=== PATIENT | male | born 1960 | race Caucasian/White ===

== ENCOUNTER → 2016-05-08 | Outpatient (CLI) | payer OTHER ==
[2016-05-10 15:32] LABS: HCV Qualitative Result DETECTED (Not detected)
== END | disposition home or self-care (01) ==
LOC: LABWHC1 14:47
PROVIDERS: ATTEND Physician Assistant
DX: B18.2 Chronic viral hepatitis C (principal)
CPT/HCPCS: 36415; 87522; 87902

== ENCOUNTER → 2016-05-15 | Outpatient (CLI) | payer OTHER ==
[2016-05-20 06:31] LABS: Mis test requested (Blood) Hep C RNA Geno1 NS5a
== END | disposition home or self-care (01) ==
LOC: LABWHC1 11:35
PROVIDERS: ATTEND Physician Assistant
DX: B18.2 Chronic viral hepatitis C (principal)
CPT/HCPCS: 36415; 87902

== ENCOUNTER 2016-08-29 07:23 | Day surgery (SDC) | payer OTHER ==
[2016-08-25 15:57] VITALS: BMI 29.0
[~2016-08-29 07:23] MED LIST: LACTATED RINGERS 1,000 ML IV SCH
[2016-08-29 07:45] VITALS: RESP 18; TEMP 97.9
[2016-08-29] MEDS ORDERED: LIDOCAINE 1% 20 ML VIAL (10MG/ML) FOR IV START INTRADERMA ONE (07:55)
[2016-08-29] MEDS ORDERED: PROPOFOL 10 MG/ML 20 ML VIAL IV ONE (08:42)
[2016-08-29] MEDS ORDERED: LIDOCAINE 1% INJ 10MG/ML (20 ML MDV) ONE (08:42)
--- NOTE | 2016-08-29 09:08 | P.PCN ---
Date of Procedure: 08/29/16 Preoperative Diagnosis: Postoperative Diagnosis: Procedure(s) Performed: Procedure: Total colonoscopy. Preoperative diagnosis: Screening for neoplasia, patient has history of polyps. Postoperative diagnosis: Exam within normal limits. Preparation: HalfLytely prep. Sedation: Was provided by anesthesia. Brief clinical history: The patient is a 55-year-old male who is scheduled for this evaluation because of history of polyps. Multiple polyps were removed on his last exam was in September 2013. The patient has no abdominal complaints, bleeding or anemia. Procedure: With the patient on his left lateral decubitus position and after informed consent and adequate sedation, the perianal area was inspected and it did not show any fissures or fistulas. There were no masses felt on digital rectal examination. The Olympus CFQ 160L video colonoscope was then inserted in the rectum in the usual fashion and advanced to the cecum. The mucosa appeared healthy. No polyps or tumors were seen or any obvious diverticular disease or other pathology. I retroflexed endoscope in the rectum before the endoscope was withdrawn. The patient tolerated the procedure well. Plan: The patient was reassured. He will follow up with you as planned and I recommended repeat exam in 5 years. Implants: Indications for Procedure: Operative Findings: Description of Procedure:
[2016-08-29 09:24] VITALS: BP 166/84; PULSE 52
== END 2016-08-29 09:42 | disposition home or self-care (01) ==
LOC: ORWHC2ENDO 07:23
DX: Z12.11 Encounter for screening for malignant neoplasm of colon (principal); Z86.010 Personal history of colon polyps; F17.200 Nicotine dependence, unspecified, uncomplicated; E07.9 Disorder of thyroid, unspecified; Z79.1 Long term (current) use of non-steroidal anti-inflammatories (NSAID); Z79.891 Long term (current) use of opiate analgesic; Z79.899 Other long term (current) drug therapy
CPT/HCPCS: J2001; J2704; G0105

== ENCOUNTER → 2016-10-18 | Outpatient (CLI) | payer MEDICARE ==
[2016-10-18 13:28] LABS: Basophils # (A) 0.1 k/uL (0-0.2); Basophils % (A) 1 %; CH 28.1; CHCM 33.3; Eosinophils # (A) 0.2 k/uL (0-0.7); Eosinophils % (A) 2 %; HCT 49.1 % (39.0-53.0); HDW 2.59; HGB 16.3 gm/dL (13.0-17.5); Luc # (Auto) 0.11; Luc % (Auto) 1; Lymphocytes # (A) 2.4 k/uL (1.0-4.8); Lymphocytes % (A) 23 %; MCH 28.1 pg (25.0-35.0); MCHC 33.2 g/dL (31.0-37.0); MCV 84.7 fL (80.0-100.0); Mean Platelet Volume 6.8; Monocytes # (A) 0.6 k/uL (0-1.0); Monocytes % (A) 6 %; Neutrophils # (A) 6.7 k/uL (1.3-7.7); Neutrophils % (A) 67 %; RDW 13.2 % (11.5-15.5); WBC (Perox) 9.16
[2016-10-18 13:41] LABS: Bilirubin, Delta 0.2 mg/dL (0.0-0.2); Total Bilirubin 0.7 mg/dL (0.2-1.3); Total Protein 7.2 g/dL (6.3-8.2)
[2016-10-20 14:41] LABS: LOG HCV IU/mL 6.33 (<1.08)
== END ==
LOC: LABWHC1 13:03
DX: B18.2 Chronic viral hepatitis C (principal)
CPT/HCPCS: 36415; 80076; 85025; 87522

== ENCOUNTER → 2017-02-16 | Outpatient (CLI) | payer MEDICARE ==
[2017-02-16 13:12] LABS: Basophils # (A) 0.1 k/uL (0-0.2); Basophils % (A) 1 %; CH 27.8; CHCM 32.2; Eosinophils # (A) 0.3 k/uL (0-0.7); Eosinophils % (A) 4 %; HCT 49.1 % (39.0-53.0); HDW 2.47; HGB 15.9 gm/dL (13.0-17.5); Luc # (Auto) 0.05; Luc % (Auto) 1; Lymphocytes % (A) 22 %; MCH 28.1 pg (25.0-35.0); MCHC 32.5 g/dL (31.0-37.0); MCV 86.7 fL (80.0-100.0); Mean Platelet Volume 7.9; Monocytes # (A) 0.5 k/uL (0-1.0); Monocytes % (A) 5 %; Neutrophils % (A) 67 %; RBC 5.66 m/uL (4.30-5.90); RDW 14.7 % (11.5-15.5); WBC (Perox) 9.22
[2017-02-16 14:51] LABS: Bilirubin, Delta 0.2 mg/dL (0.0-0.2); Total Bilirubin 0.6 mg/dL (0.2-1.3); Total Protein 7.3 g/dL (6.3-8.2)
[2017-02-19 15:49] LABS: Hepatits C Virus RNA, Quant <12 IU/mL (<12); LOG HCV IU/mL <1.08 (<1.08)
== END | disposition home or self-care (01) ==
LOC: LABWHC1 12:47
PROVIDERS: ATTEND Physician Assistant
DX: B18.2 Chronic viral hepatitis C (principal)
CPT/HCPCS: 36415; 80076; 85025; 87522

== ENCOUNTER → 2017-08-14 | Outpatient (CLI) | payer MEDICARE ==
[2017-08-14 13:09] LABS: Albumin 4.5 g/dL (3.5-5.0); Bilirubin, Delta 0.2 mg/dL (0.0-0.2); Bilirubin,Unconjugated 0.5 mg/dL (0.0-1.1); Total Bilirubin 0.7 mg/dL (0.2-1.3); Total Protein 7.3 g/dL (6.3-8.2)
[2017-08-15 13:06] LABS: Hepatits C Virus RNA DETECTED (Not detected); LOG HCV IU/mL 3.83 (<1.08)
== END | disposition home or self-care (01) ==
LOC: LABWHC1 12:23
DX: B19.20 Unspecified viral hepatitis C without hepatic coma (principal)
CPT/HCPCS: 36415; 80076; 87522

== ENCOUNTER → 2017-09-03 | Outpatient (CLI) | payer MEDICARE ==
[2017-09-03 10:16] LABS: Basophils % (A) 1 %; Eosinophils # (A) 0.2 k/uL (0-0.7); Eosinophils % (A) 2 %; HCT 48.5 % (39.0-53.0); HGB 16.1 gm/dL (13.0-17.5); Lymphocytes # (A) 2.1 k/uL (1.0-4.8); Lymphocytes % (A) 22 %; MCH 28.6 pg (25.0-35.0); MCHC 33.3 g/dL (31.0-37.0); Mean Platelet Volume 6.6; Monocytes # (A) 0.6 k/uL (0-1.0); Monocytes % (A) 6 %; Neutrophils # (A) 6.5 k/uL (1.3-7.7); Neutrophils % (A) 68 %; Platelet Count 209 k/uL (150-450); RBC 5.63 m/uL (4.30-5.90); RDW 13.5 % (11.5-15.5); WBC 9.5 k/uL (3.8-10.6)
== END | disposition home or self-care (01) ==
LOC: LABWHC1 09:41
PROVIDERS: ATTEND Physician Assistant
DX: B18.2 Chronic viral hepatitis C (principal)
CPT/HCPCS: 36415; 85025

== ENCOUNTER → 2017-12-18 | Outpatient (CLI) | payer MEDICARE ==
[2017-12-18 13:14] LABS: Basophils # (A) 0.1 k/uL (0-0.2); Basophils % (A) 1 %; Eosinophils # (A) 0.2 k/uL (0-0.7); Eosinophils % (A) 2 %; HCT 49.1 % (39.0-53.0); Lymphocytes # (A) 2.6 k/uL (1.0-4.8); Lymphocytes % (A) 22 %; MCH 27.5 pg (25.0-35.0); MCHC 32.5 g/dL (31.0-37.0); MCV 84.7 fL (80.0-100.0); Mean Platelet Volume 6.9; Monocytes # (A) 0.6 k/uL (0-1.0); Monocytes % (A) 5 %; Neutrophils # (A) 8.1 k/uL (1.3-7.7); Neutrophils % (A) 70 %; Platelet Count 252 k/uL (150-450); WBC 11.6 k/uL (3.8-10.6)
[2017-12-18 13:52] LABS: Albumin 4.1 g/dL (3.5-5.0); Bilirubin, Delta 0.2 mg/dL (0.0-0.2); Bilirubin,Unconjugated 0.4 mg/dL (0.0-1.1); Total Bilirubin 0.6 mg/dL (0.2-1.3); Total Protein 7.1 g/dL (6.3-8.2)
== END | disposition home or self-care (01) ==
LOC: LABWHC1 11:59
PROVIDERS: ATTEND Physician Assistant
DX: B18.2 Chronic viral hepatitis C (principal)
CPT/HCPCS: 36415; 80076; 82105; 85025

== ENCOUNTER → 2018-01-09 | Outpatient (CLI) | payer MEDICARE ==
[2018-01-10 14:58] LABS: Hepatits C Virus RNA Not detected (Not detected); Hepatits C Virus RNA, Quant <12 IU/mL (<12); LOG HCV IU/mL <1.08 (<1.08)
== END | disposition home or self-care (01) ==
LOC: LABWHC1 09:40
DX: B18.2 Chronic viral hepatitis C (principal)
CPT/HCPCS: 36415; 87522

== ENCOUNTER → 2018-06-28 | Outpatient (CLI) | payer MEDICARE ==
[2018-07-01 15:43] LABS: Hepatits C Virus RNA Not detected (Not detected); Hepatits C Virus RNA, Quant <12 IU/mL (<12); LOG HCV IU/mL <1.08 (<1.08)
== END | disposition home or self-care (01) ==
LOC: LABWHC1 10:45
DX: B18.2 Chronic viral hepatitis C (principal)
CPT/HCPCS: 36415; 87522

== ENCOUNTER 2018-10-08 10:58 | Inpatient (IN) | payer MEDICARE ==
[2018-10-08] MEDS ORDERED: SODIUM CHLORIDE 0.9% 1,000 ML IV STA (11:17)
[2018-10-08 11:33] LABS: Glucose,Whole Blood 107 mg/dL (75-99)
--- NOTE | 2018-10-08 11:41 | ED ---
Neuro HPI - General Chief Complaint: Weakness Stated Complaint: POSS CVA Source: patient, family Mode of arrival: wheelchair Limitations: no limitations - History of Present Illness Is the patient presenting with stroke symptoms?: Yes Initial Comments: This 57-year-old white male presents with with the complaint of some right- sided weakness. 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 Ingram. He had this surgery due to severe back arthritis which was causing some right arm weakness. The head continued right arm weakness after the surgery. He is placed on a 12 day course of steroids from approximately September 10 to September 22. He relates that his weakness did improve to some degree but then worsened after he stopped the steroids. At this point, he cannot move any portion of his right upper extremity. The relates that it also is been affecting his right lower extremity. He seems weak on his right leg but is still able to ambulate but seems to have foot drop on the right side. She also relates that she is having problems with his speech. He apparently has symptoms of expressive aphasia per his . They were sent in today by their doctor to rule out any possibility of stroke that could be complicating his postoperative course. He denies any problems with sensation. There is not been any recent fevers or chills or signs of infection. He denies any other previous medical history outside of neck arthritis. There is been no history of previous stroke or TIA. It sounds as though his right arm paralysis, right leg weakness, and expressive aphasia have been going on for approximately 2-1/2 weeks. - Related Data Home Medications: Home Medications Medication Instructions Recorded Confirmed Levothyroxine Sodium [Synthroid] 75 mcg PO DAILY 08/25/16 10/08/18 Allergies/Adverse Reactions: Allergies Allergy/AdvReac Type Severity Reaction Status Date / Time No Known Allergies Allergy Verified 10/08/18 11:22 Review of Systems ROS Statement: Those systems with pertinent positive or pertinent negative responses have been documented in the HPI. ROS Other: All systems not noted in ROS Statement are negative. General Exam - General Exam Comments Initial Comments: GENERAL: The patient is well nourished and well hydrated. VITAL SIGNS: Heart rate, blood pressure, respiratory rate reviewed as recorded in nurse's notes. EYES: Pupils are round and reactive. Extraocular movements are intact. No conjunctival / lid redness or swelling. ENT: No external evidence of injury, swelling, or ecchymosis. Airway is patent. Throat is clear. NECK: Nontender. No swelling or evidence of injury. No subcutaneous emphysema. Trachea is midline. No thyroid mass. HEART: Regular rate and rhythm. Good peripheral pulses. LUNGS/CHEST: Breath sounds clear and equal bilaterally. No rales, rhonchi, or wheezes. No ecchymosis, subcutaneous emphysema, or tenderness. ABDOMEN: Abdomen soft without tenderness. No palpable masses or organomegaly. No peritoneal signs. No abdominal wall swelling or ecchymosis. EXTREMITIES: No extremity tenderness. NEUROLOGIC: Sensation is grossly intact. The patient has complete right arm paralysis. There is slight right leg weakness. Strength is intact for his left upper extremity and left lower extremity. His speech is normal at this point but he will only answer 1 or 2 word questions. No facial droop noted. SKIN: No abrasions or ecchymosis is noted. No induration or masses noted. There is a well-healed anterior cervical scar from recent surgery with no evidence of infection PSYCHIATRIC: Alert and oriented. Appropriate behavior and judgment. Limitations: no limitations Stroke MDM - Lab Data Result diagrams: 10/08/18 11:30 10/08/18 11:30 Lab Results 10/08/18 10/08/18 10/08/18 Range/Units 11:28 11:30 11:30 WBC 12.0 H (3.8-10.6) k/uL RBC 5.73 (4.30-5.90) m/uL Hgb 15.6 (13.0-17.5) gm/dL Hct 47.4 (39.0-53.0) % MCV 82.8 (80.0-100.0) fL MCH 27.3 (25.0-35.0) pg MCHC 33.0 (31.0-37.0) g/dL RDW 13.9 (11.5-15.5) % Plt Count 253 (150-450) k/uL Neutrophils % 76 % Lymphocytes % 16 % Monocytes % 4 % Eosinophils % 2 % Basophils % 0 % Neutrophils # 9.1 H (1.3-7.7) k/uL Lymphocytes # 1.9 (1.0-4.8) k/uL Monocytes # 0.5 (0-1.0) k/uL Eosinophils # 0.3 (0-0.7) k/uL Basophils # 0.1 (0-0.2) k/uL PT (9.0-12.0) sec INR (<1.2) APTT (22.0-30.0) sec Sodium 141 (137-145) mmol/L Potassium 4.6 (3.5-5.1) mmol/L Chloride 109 H (98-107) mmol/L Carbon Dioxide 22 (22-30) mmol/L Anion Gap 10 mmol/L BUN 15 (9-20) mg/dL Creatinine 0.79 (0.66-1.25) mg/dL Est GFR (CKD-EPI)AfAm >90 (>60 ml/min/1.73 sqM) Est GFR (CKD-EPI)NonAf >90 (>60 ml/min/1.73 sqM) Glucose 101 H (74-99) mg/dL POC Glucose (mg/dL) 107 H (75-99) mg/dL POC Glu [employer] ID Laureano Dominic Calcium 9.3 (8.4-10.2) mg/dL Total Bilirubin 1.0 (0.2-1.3) mg/dL AST 37 (17-59) U/L ALT 15 L (21-72) U/L Alkaline Phosphatase 77 (38-126) U/L Troponin I (0.000-0.034) ng/mL Total Protein 7.2 (6.3-8.2) g/dL Albumin 4.2 (3.5-5.0) g/dL 10/08/18 10/08/18 Range/Units 11:30 11:30 WBC (3.8-10.6) k/uL RBC (4.30-5.90) m/uL Hgb (13.0-17.5) gm/dL Hct (39.0-53.0) % MCV (80.0-100.0) fL MCH (25.0-35.0) pg MCHC (31.0-37.0) g/dL RDW (11.5-15.5) % Plt Count (150-450) k/uL Neutrophils % % Lymphocytes % % Monocytes % % Eosinophils % % Basophils % % Neutrophils # (1.3-7.7) k/uL Lymphocytes # (1.0-4.8) k/uL Monocytes # (0-1.0) k/uL Eosinophils # (0-0.7) k/uL Basophils # (0-0.2) k/uL PT 9.7 (9.0-12.0) sec INR 0.9 (<1.2) APTT 23.0 (22.0-30.0) sec Sodium (137-145) mmol/L Potassium (3.5-5.1) mmol/L Chloride (98-107) mmol/L Carbon Dioxide (22-30) mmol/L Anion Gap mmol/L BUN (9-20) mg/dL Creatinine (0.66-1.25) mg/dL Est GFR (CKD-EPI)AfAm (>60 ml/min/1.73 sqM) Est GFR (CKD-EPI)NonAf (>60 ml/min/1.73 sqM) Glucose (74-99) mg/dL POC Glucose (mg/dL) (75-99) mg/dL POC Glu [employer] ID Calcium (8.4-10.2) mg/dL Total Bilirubin (0.2-1.3) mg/dL AST (17-59) U/L ALT (21-72) U/L Alkaline Phosphatase (38-126) U/L Troponin I <0.012 (0.000-0.034) ng/mL Total Protein (6.3-8.2) g/dL Albumin (3.5-5.0) g/dL - Medical Decision Making The patient was seen and examined. An EKG was done which shows a normal sinus rhythm at a rate of 67. There is no acute ST T-wave changes identified. CT interval is 152, QRS duration is 74, the QTc interval is 407. Appears he has a normal sinus rhythm on the nurse monitoring. It appears as though his symptoms are subacute and it been going on for quite some time. A code stroke was not called as there has not been a change in his symptomatology and over 2 and half weeks. The laboratories reviewed and overall is unremarkable. The patient had a computed tomography scan of the brain which does show a significant area of edema likely either ischemic or from a mass. The CTA of the head and neck does not show any large vessel occlusive disease. It does show an area of acute versus subacute infarct on the left side with suspected distal occlusive disease. The case is discussed with Dr. Wilkes from interventional neurology and he recommends that the patient obtain an MRI scan of the brain with and without contrast. The patient will be admitted to the hospital for further treatment. It is felt as though he has suffered an ischemic stroke. It appears that it is at least 2-1/2 weeks old but probably longer. He is not a candidate for TPA or further intervention. An aspirin will be given. Case will be discussed with internal medicine in the near future and patient will be admitted with neurology consult. Past Medical History Additional Past Medical History / Comment(s): hx of polyps, hx of gout, hepatitis c, History of Any Multi-Drug Resistant Organisms: None Reported Additional Past Surgical History / Comment(s): colonoscopy, neck surgery. Past Anesthesia/Blood Transfusion Reactions: No Reported Reaction Past Psychological History: No Psychological Hx Reported Smoking Status: Current every day smoker Past Alcohol Use History: None Reported Past Drug Use History: None Reported - Past Family History Mother Family Medical History: No Reported History Course Vital Signs 10/08/18 11:07 Temperature 98.3 F Pulse Rate 65 Respiratory 20 Rate Blood Pressure 155/90 O2 Sat by Pulse 98 Oximetry Disposition Clinical Impression: CVA (cerebral vascular accident), Hypertension, Status post cervical spinal fusion, Paralysis of right upper extremity, Right leg weakness, Expressive aphasia Disposition: ADMITTED IP TO THIS [facility] Condition: Fair Is patient prescribed a controlled substance at d/c from ED?: No Referrals: None,Stated [REFERRING] - 1-2 days Time of Disposition: 13:10 Decision Date: 10/08/18 Decision Time: 13:10
[2018-10-08 11:42] LABS: Basophils # (A) 0.1 k/uL (0-0.2); Basophils % (A) 0 %; Eosinophils # (A) 0.3 k/uL (0-0.7); Eosinophils % (A) 2 %; HCT 47.4 % (39.0-53.0); HGB 15.6 gm/dL (13.0-17.5); Lymphocytes # (A) 1.9 k/uL (1.0-4.8); Lymphocytes % (A) 16 %; MCH 27.3 pg (25.0-35.0); MCV 82.8 fL (80.0-100.0); Mean Platelet Volume 6.9; Monocytes # (A) 0.5 k/uL (0-1.0); Monocytes % (A) 4 %; Neutrophils # (A) 9.1 k/uL (1.3-7.7); Neutrophils % (A) 76 %; Platelet Count 253 k/uL (150-450); RBC 5.73 m/uL (4.30-5.90); RDW 13.9 % (11.5-15.5)
[2018-10-08 11:53] LABS: ALT 15 U/L (21-72); AST 37 U/L (17-59); African American GFR (CKD) >90 (>60 ml/min/1.73 sqM); Albumin 4.2 g/dL (3.5-5.0); Alkaline Phosphatase 77 U/L (38-126); Anion Gap 10 mmol/L; Blood Urea Nitrogen 15 mg/dL (9-20); Calcium 9.3 mg/dL (8.4-10.2); Carbon Dioxide 22 mmol/L (22-30); Chloride 109 mmol/L (98-107); Glucose 101 mg/dL (74-99); Sodium 141 mmol/L (137-145); Total Protein 7.2 g/dL (6.3-8.2)
[2018-10-08 12:02] LABS: Potassium 4.6 mmol/L (3.5-5.1)
[2018-10-08 12:07] LABS: INR 0.9 (<1.2); Prothrombin Time 9.7 sec (9.0-12.0)
--- NOTE | 2018-10-08 12:17 | CT ---
EXAMINATION TYPE: CT brain wo con DATE OF EXAM: 10/08/2018 HISTORY: Worsening right side weakness post cervical fusion. Slurred speech. CT DLP: 1096 mGycm. Automated Exposure Control for Dose Reduction was Utilized. TECHNIQUE: CT scan of the head is performed without contrast. COMPARISON: None. FINDINGS: There is no acute intracranial hemorrhage identified. There is marked area of low attenua tion with sulcal effacement left frontal parietal region in the MCA distribution with subtle midline shift estimated 4 to 5 mm at axial image 28. The globes are intact and the visualized sinuses are cl ear. There is anterior fusion plate C5-C7 levels seen on localizer. IMPRESSION: No acute intracranial hemorrhage . A large area of vasogenic edema with sulcal effacemen t causing subtle midline shift left frontal lobe. Consider ischemia or neoplasm.
--- NOTE | 2018-10-08 12:48 | CT ---
EXAMINATION TYPE: CT angio head neck DATE OF EXAM: 10/08/2018 HISTORY: Neuro deficits, right-sided weakness status post cervical fusion, slurred speech COMPARISON: NONE CT DLP: 388 mGycm. Automated Exposure Control for Dose Reduction was Utilized. TECHNIQUE: CTA scan of the head and neck are performed with IV Contrast, patient injected with 50 mL of Isovue 370, axial images are obtained, coronal and sagittal reformatted images are reviewed. Thre e-D reconstructed images are created on an independent workstation and reviewed. FINDINGS: Carotid/Vascular Structures: There is mild to moderate peripheral mixed plaque in the aortic arch ext ending into the great vessels without significant stenosis. Right common carotid artery shows normal origin from right brachiocephalic artery. There is no significant plaque or stenosis in right common or internal carotid artery including available carotid bulb. There is slight tortuous course to the r ight internal carotid artery mild calcified plaque supraclinoid segment but no significant stenosis. Patent right external carotid artery without significant plaque or stenosis. There is no significant plaque or stenosis left common carotid artery including carotid bulb with mil d peripheral plaque proximal left internal carotid artery and mild calcified plaque supraclinoid segm ent. No significant stenosis internal carotid artery is seen. Left external carotid artery is patent without significant stenosis. There is codominant vertebrobasilar system. Vertebral arteries are patent to basilar junction. There are hypoplastic bilateral posterior indicating artery. There is no significant focal stenosis or aneu rysmal change and posterior circulation. Images of the anterior circulation show no major stenosis or aneurysmal change in the anterior middle cerebral arteries through the trifurcation. Patent anterior communicating artery is not well seen. Other: No obvious enhancing mass or suspicious enhancement in the left frontal region in the area of marked low attenuation and sulcal effacement. There is anterior fusion plate C5-C7 level with artificial disc material. Posterior spurring C5-6 lev el effaces anterior thecal sac at this level. Mild emphysematous change in visualized lung apices. Co mpletely opacified small-caliber left maxillary sinus. No obvious large cerebral venous occlusion . IMPRESSION: 1. No significant stenosis in common or internal carotid arteries bilaterally. 2. No significant stenosis at level of [place] or aneurysmal change. Consider distal occlusi ve thromboembolism causing significant left-sided acute/subacute infarction.
--- NOTE | 2018-10-08 12:52 | XR ---
EXAMINATION TYPE: XR chest 2V DATE OF EXAM: 10/08/2018 COMPARISON: NONE HISTORY: Altered mental status TECHNIQUE: Frontal and lateral views of the chest are obtained. FINDINGS: The patient is rotated. Postop changes are noted to the cervical spine. There are overlying cardiac leads. Lung volumes are low. There is no pleural effusion or pneumothorax seen. The cardiac silhouette size is within normal limits accounting for rotation and technique. Minimal subsegmental basilar atelectatic changes are suspected. The osseous structures are intact. IMPRESSION: Basilar atelectasis. Expiratory rotated exam, consider follow-up PA and lateral chest x- ray when stable.
[2018-10-08] MEDS ORDERED: ASPIRIN 81 MG PO STA (13:12)
[2018-10-08] MEDS ORDERED: ENOXAPARIN 40 MG/0.4 ML SYRINGE SQ SCH (13:30)
--- NOTE | 2018-10-08 14:09 | P.HPIM ---
History of Present Illness H&P Date: 10/08/18 Chief Complaint: right sided weakness and slurred speech This is a 57-year-old male, patient of Dr. Cintron. He has a known past medical history of a recent cervical fusion with Dr. Ingram on 09/03/2018 and history of hypothyroidism. Also history of nicotine dependence. Patient quit smoking a few weeks ago. Most of history was obtained from patient's as well as the chart. Per patient's he has been suffering with right arm weakness that did not improve with surgery. After the cervical fusion patient continued to have right we'll arm paralysis and suffering right leg weakness. She also noted he was having difficulty with his speech. Patient was given another course of prednisone by Dr. Ingram. Per patient has not been on any steroids since October 01. Patient went to follow-up visit with Dr. Ingram and due to the weakness affecting the right leg and also difficulty with speech he came into the ER for further evaluation for possible stroke. Patient has no prior history of stroke or TIA. He has no history of any cardiac arrhythmias. Patient also has been dragging his right leg. He has fallen because of this. Patient's symptoms have been ongoing for about 2-1/2 weeks. CTA of the head and neck completed showing no significant stenosis in the common or internal carotid arteries bilaterally. No significant stenosis at the level of [place] or aneurysmal change. Consider distal occlusive thromboembolism causing significant left-sided acute/subacute infarction. Computed tomography scan of the brain showing no acute intracranial hemorrhage. A large area of vasogenic edema with sulcal effacement causing subtle midline shift left frontal lobe. Consider ischemia or neoplasm. Patient has been started on a full aspirin. Neurology has been placed on consult as well as Dr. Ingram. Echocardiogram pending. Troponin is negative. White count 12. Initial blood pressure 155/90. Patient denies any fever, chills, sweats, nausea or vomiting, bowel movement changes or urinary symptoms. Review of Systems Please refer to HPI otherwise unremarkable Past Medical History Additional Past Medical History / Comment(s): hx of polyps, hx of gout, hepatitis c, History of Any Multi-Drug Resistant Organisms: None Reported Additional Past Surgical History / Comment(s): colonoscopy, neck surgery. Past Anesthesia/Blood Transfusion Reactions: No Reported Reaction Past Psychological History: No Psychological Hx Reported Smoking Status: Current every day smoker Past Alcohol Use History: None Reported Past Drug Use History: None Reported - Past Family History Mother Family Medical History: No Reported History Medications and Allergies Home Medications Medication Instructions Recorded Confirmed Type Levothyroxine Sodium [Synthroid] 75 mcg PO DAILY 08/25/16 10/08/18 History Allergies Allergy/AdvReac Type Severity Reaction Status Date / Time No Known Allergies Allergy Verified 10/08/18 11:22 Physical Exam Vitals: Vital Signs Temp Pulse Resp BP Pulse Ox 10/08/18 11:07 98.3 F 65 20 155/90 98 Intake and Output 10/07/18 10/08/18 10/08/18 22:59 06:59 14:59 Other: Weight 80.739 kg Head normocephalic Neck supple Lungs clear to auscultation bilaterally no wheezing or crackles Heart regular rate and rhythm S1-S2, no rub or gallop Abdomen is soft nontender nondistended positive bowel sounds no hepatosplenomegaly Extremities no edema Neuro patient is awake and answers questions with yes or no answer. Also laughing at inappropriate times. He is able to follow commands. Patient's right arm has evidence of paralysis is unable to move it. Intact pulses. Right leg weakness noted to 3 out of 5. No facial droop noted Results CBC & Chem 7: 10/08/18 11:30 10/08/18 11:30 Labs: Abnormal Lab Results - Last 24 Hours (Table) 10/08/18 10/08/18 10/08/18 Range/Units 11:28 11:30 11:30 WBC 12.0 H (3.8-10.6) k/uL Neutrophils # 9.1 H (1.3-7.7) k/uL Chloride 109 H (98-107) mmol/L Glucose 101 H (74-99) mg/dL POC Glucose (mg/dL) 107 H (75-99) mg/dL ALT 15 L (21-72) U/L Assessment and Plan Assessment: 1. CVA with Right upper extremity paralysis, right leg weakness and expressive aphasia. Computed tomography scan of the brain showing no acute intracranial hemorrhage. Did reveal a large area of vasogenic edema with sulcal effacement causing subtle midline shift left frontal lobe. Consider ischemia or neoplasm. CTA of head and neck no significant stenosis in the common or internal carotid arteries bilaterally. No significant stenosis at level of the [place] or aneurysmal change. Consider distal occlusive thromboembolism causing significant left-sided acute or subacute infarction. Patient started on aspirin 325 mg daily. Check lipid panel. Check 2-D echo. Continue with telemetry monitoring. EKG showing normal sinus rhythm. Consult neurology. Speech therapy consult for swallow evaluation. Consult PT OT 2. Recent cervical spinal fusion on 09/03/[address] Ingram. Had completed a prednisone taper after surgery. Consult placed for Dr. Ingram 3. History of hypothyroidism continue Synthroid 4. History of hepatitis C 5. History of osteoarthritis 6. Leukocytosis: Chest x-ray showing evidence of atelectasis. We'll order incentive spirometer. Check urinalysis. Repeat CBC in a.m. GI prophylaxis Pepcid and DVT prophylaxis Lovenox Time with Patient: Greater than 30 (Greater than 50% of the total time spent in counseling and coordination of care.I performed an examination of the patient and discussed their management with the physician Advertising Copywriter. I have reviewed the Physician Advertising Copywriter's notes and agree with the documented findings and plan of care)
[2018-10-08] MEDS ORDERED: DEXAMETHASONE SOD PHOSPHATE 4 MG/ML 1 ML VIAL IV SCH (14:30)
[2018-10-08 14:31] VITALS: BMI 29.6
[2018-10-08 14:33] VITALS: RESP 18; TEMP 98.1
--- NOTE | 2018-10-08 15:49 | P.DS ---
Providers Date of admission: 10/08/18 13:12 Expected date of discharge: 10/08/18 Attending physician: Allyn Duncan Consults: 10/08/18 13:14 Consult Physician Urgent Consulting Provider: Rosie Gann Consult Reason/Comments: cva Do you want consulting provider notified?: Yes 10/08/18 13:15 Consult Physician Routine Consulting Provider: Juancarlos Ingram Consult Reason/Comments: s/p cervical fusion Do you want consulting provider notified?: Yes Primary care physician: Rosio Cintron Hospital Course: Discharge Diagnosis 1. CVA with Right upper extremity paralysis, right leg weakness and expressive aphasia. Computed tomography scan of the brain showing no acute intracranial hemorrhage. Did reveal a large area of vasogenic edema with sulcal effacement causing subtle midline shift left frontal lobe. Consider ischemia or neoplasm. CTA of head and neck no significant stenosis in the common or internal carotid arteries bilaterally. No significant stenosis at level of the [place] or aneurysmal change. Consider distal occlusive thromboembolism causing significant left-sided acute or subacute infarction. Patient started on aspirin 325 mg daily. Check lipid panel. Check 2-D echo. Continue with telemetry monitoring. EKG showing normal sinus rhythm. Consult neurology. Speech therapy consult for swallow evaluation. Consult PT OT 2. Recent cervical spinal fusion on 09/03/[address] Ingram. Had completed a prednisone taper after surgery. Consult placed for Dr. Ingram 3. History of hypothyroidism continue Synthroid 4. History of hepatitis C 5. History of osteoarthritis 6. Leukocytosis: Chest x-ray showing evidence of atelectasis. We'll order incentive spirometer. Check urinalysis. Repeat CBC in a.m. Hospital Course This is a 57-year-old male, patient of Dr. Cintron. He has a known past medical history of a recent cervical fusion with Dr. Ingram on 09/03/2018 and history of hypothyroidism. Also history of nicotine dependence. Patient quit smoking a few weeks ago. Most of history was obtained from patient's as well as the chart. Per patient's he has been suffering with right arm weakness that did not improve with surgery. After the cervical fusion patient continued to have right we'll arm paralysis and suffering right leg weakness. She also noted he was having difficulty with his speech. Patient was given another course of prednisone by Dr. Ingram. Per patient has not been on any steroids since October 01. Patient went to follow-up visit with Dr. Ingram and due to the weakness affecting the right leg and also difficulty with speech he came into the ER for further evaluation for possible stroke. Patient has no prior history of stroke or TIA. He has no history of any cardiac arrhythmias. Patient also has been dragging his right leg. He has fallen because of this. Patient's symptoms have been ongoing for about 2-1/2 weeks. CTA of the head and neck completed showing no significant stenosis in the common or internal carotid arteries bilaterally. No significant stenosis at the level of [place] or aneurysmal change. Consider distal occlusive thromboembolism causing significant left-sided acute/subacute infarction. Computed tomography scan of the brain showing no acute intracranial hemorrhage. A large area of vasogenic edema with sulcal effacement causing subtle midline shift left frontal lobe. Consider ischemia or neoplasm. Patient has been started on a full aspirin. Neurology has been placed on consult as well as Dr. Ingram. Echocardiogram pending. Troponin is negative. White count 12. Initial blood pressure 155/90. Patient denies any fever, chills, sweats, nausea or vomiting, bowel movement changes or urinary symptoms. Patient to be transferred to [facility]. Patient has been accepted for neurology and neurosurgery consult. Case management also discussed case with Dr. Ingram notes added to chart sent to [facility]. Family consented to transfer. I performed an examination of the patient and discussed their management with the Nurse Practitioner. I have reviewed the Nurse Practitioner's notes and agree with the documented findings and plan of care Patient Condition at Discharge: Stable Plan - Discharge Summary Discharge Rx Participant: No New Discharge Prescriptions: No Action Levothyroxine Sodium [Synthroid] 75 mcg PO DAILY Discharge Medication List Levothyroxine Sodium [Synthroid] 75 mcg PO DAILY 08/25/16 [History] Follow up Appointment(s)/Referral(s): None,Stated [REFERRING] - 1-2 days Activity/Diet/Wound Care/Special Instructions: Patient is s/p anterior cervical decompression and fusion C5-C6, C6-C7 on 09/03/2018. Per Dr. Ingram, patient is cleared to have an MRI if indicated. Any questions may contact Dr. Haddad or Marcos Stewart PA-C at [phone]. Surgery was performed at [facility] by Dr. Ingram - [phone]
[2018-10-08 16:50] VITALS: BP 133/78; PULSE 60
[2018-10-08] MEDS ORDERED: FAMOTIDINE 20 MG/2 ML VIAL IV SCH (21:00)
[2018-10-09] MEDS ORDERED: LEVOTHYROXINE 75 MCG TAB PO SCH (06:30)
--- NOTE | 2018-10-09 11:31 | ECHOF ---
Referral Reason:Thrombus MEASUREMENTS -------- HEIGHT: 165.1 cm WEIGHT: 80.7 kg BP: 155/90 RVIDd: 2.9 cm (< 3.3) IVSd: 1.3 cm (0.6 - 1.1) LVIDd: 4.0 cm (3.9 - 5.3) LVPWd: 1.3 cm (0.6 - 1.1) IVSs: 1.3 cm LVIDs: 2.8 cm LVPWs: 1.5 cm LA Diam: 3.2 cm (2.7 - 3.8) LAESV Index (A-L): 20.31 ml/m Ao Diam: 3.1 cm (2.0 - 3.7) AV Cusp: 1.8 cm (1.5 - 2.6) MV EXCURSION: 15.271 mm (> 18.000) MV EF SLOPE: 84 mm/s (70 - 150) EPSS: 0.7 cm MV E Steve: 0.60 m/s MV DecT: 394 ms MV A Steve: 0.68 m/s MV E/A Ratio: 0.88 FINDINGS -------- Sinus rhythm. This was a technically good study. The left ventricular size is normal. There is mild concentric left ventricular hypertrophy. Overa ll left ventricular systolic function is normal with, an EF between 60 - 65 %. The right ventricle is normal in size. Normal LA size by volume 22+/-6 ml/m2. The right atrium is normal in size. Interatrial and interventricular septum intact. The aortic valve is trileaflet and appears structurally normal. The mitral valve is normal. The tricuspid valve appears structurally normal. The pulmonic valve was not well visualized. The aortic root size is normal. Normal inferior vena cava with normal inspiratory collapse consistent with estimated right atrial pre ssure of 5 mmHg. There is no pericardial effusion. CONCLUSIONS -------- 1. Sinus rhythm. 2. This was a technically good study. 3. The left ventricular size is normal. 4. There is mild concentric left ventricular hypertrophy. 5. Overall left ventricular systolic function is normal with, an EF between 60 - 65 %. 6. The right ventricle is normal in size. 7. Normal LA size by volume 22+/-6 ml/m2. 8. The right atrium is normal in size. 9. Interatrial and interventricular septum intact. 10. The aortic valve is trileaflet and appears structurally normal. 11. The mitral valve is normal. 12. The tricuspid valve appears structurally normal. 13. The pulmonic valve was not well visualized. 14. The aortic root size is normal. 15. Normal inferior vena cava with normal inspiratory collapse consistent with estimated right atrial pressure of 5 mmHg. 16. There is no pericardial effusion. [employer]: Sharon Carvajal RDCS
[2018-10-09] MEDS ORDERED: ASPIRIN 325 MG TAB PO SCH (12:00)
== END 2018-10-08 18:30 | disposition short-term general hospital (02) | DRG 64 ==
LOC: EC 10:58 → 3SCARD 13:12
PROVIDERS: ADMIT Internal Medicine; ATTEND Internal Medicine
DX: I63.9 Cerebral infarction, unspecified (principal); G93.6 Cerebral edema; G81.91 Hemiplegia, unspecified affecting right dominant side; J98.11 Atelectasis; R47.01 Aphasia; M47.9 Spondylosis, unspecified; F17.200 Nicotine dependence, unspecified, uncomplicated; E03.9 Hypothyroidism, unspecified; D72.829 Elevated white blood cell count, unspecified; I10 Essential (primary) hypertension; Z79.890 Hormone replacement therapy; Z98.1 Arthrodesis status
CPT/HCPCS: 36415; 70450; 70496; 70498; 71046; 80053; 84484; 85025; 85610; 85730; 93005; 93306; 96360; 96361; 96372; 99285